=== PATIENT | female | born 1960 | race Caucasian/White ===

== ENCOUNTER 2021-10-12 06:39 | Emergency (ER) | payer OTHER ==
[~2021-10-12 06:39] MED LIST: 8HR ARTHRITIS650 M1 PO; ACETAMINOPHEN650 M2 PO; AZITHROMYCIN250 MG PO; CELEBREX200 MG PO; CELECOXIB200 MG PO; PREDNISONE 20MG20 MG PO; PROMETHAZINE-D473 M1 PO; TRAMADOL HCL50 MG PO; VENTOLIN HFA IN18 GM INH
[2021-10-12 07:27] LABS: BASOPHIL 0.6 % (0-2); EOSINOPHIL 2.5 % (0-5); HCT 39.2 % (37.0-47.0); HGB 12.5 g/dl (12.5-16.0); LYMPHOCYTE 42.6 % (15-48); MCHC 31.9 g/dL (32.0-36.0); MCV 97.3 fL (78.0-100.0); MONOCYTE 8.5 % (0-12); MPV 10.5 fL (6.0-9.5); NEUTROPHIL 45.4 % (41-80); NRBC 0; PLT 167 K/uL (150-400); RBC 4.03 M/uL (4.20-5.40); RDW 12.1 % (11.5-14.0); WBC 4.7 K/uL (4.0-10.5)
[2021-10-12 07:55] LABS: BUN/CREAT RATIO (CALC) 16.7 RATIO; CREATININE 0.9 mg/dL (0.51-0.95); POTASSIUM 3.6 mmol/L (3.5-5.1)
[2021-10-12] MEDS ORDERED: ATROVENT HFA12.9 GM INH (08:25)
[2021-10-12] MEDS ORDERED: PREDNISONE 20MG20 MG PO (08:25)
== END 2021-10-12 11:22 | disposition home or self-care (01) ==
LOC: FER 06:39
PROVIDERS: Emergency Medicine
DX: U07.1 COVID-19 (principal); J44.9 Chronic obstructive pulmonary disease, unspecified; E11.9 Type 2 diabetes mellitus without complications; I10 Essential (primary) hypertension; Z23 Encounter for immunization; Z88.5 Allergy status to narcotic agent; Z88.6 Allergy status to analgesic agent; Z79.899 Other long term (current) drug therapy
CPT/HCPCS: 36415; 71045; 80048; 84484; 85025; 93005; J2930; M0245; Q0245; U0002